=== PATIENT | female | born 1985 | race Caucasian/White ===

== ENCOUNTER 2019-01-04 21:42 | Emergency (ER) | payer OTHER ==
[~2019-01-04] VITALS: Ht 170.2 cm; Wt 86.2 kg
--- NOTE | 2019-01-04 22:00 | NUR ---
PATIENT BIB [facility] FROM [facility] FOR C/O PELVIC PAIN 30 MIN EDUCATION LIAISON, PATIENT STARTED AFTER HAVING A BOWEL MOVEMENT.
--- NOTE | 2019-01-04 22:41 | NUR ---
DR. TARANGO AT BEDSIDE FOR MSE.
[2019-01-04] MEDS ORDERED: TRAMADOL HCL 50 MG TABLET PO ONE (23:00)
[2019-01-04] MEDS ORDERED: TRAMADOL HCL 50 MG TABLET ONE (23:04)
--- NOTE | 2019-01-04 23:24 | NUR ---
PATIENT RETURNED FROM CT SCAN.
[2019-01-05] MEDS ORDERED: diphenhydrAMINE 50 MG/1 ML VIAL ONE (00:29)
[2019-01-05] MEDS ORDERED: MORPHINE SULFATE 4 MG/1 ML DISP.SYRIN ONE (00:29)
[2019-01-05] MEDS ORDERED: MORPHINE SULFATE 4 MG/1 ML DISP.SYRIN IM ONE (00:30)
[2019-01-05] MEDS ORDERED: MORPHINE SULFATE 2 MG/1 ML DISP.SYRIN ONE (00:30)
[2019-01-05] MEDS ORDERED: diphenhydrAMINE 50 MG/1 ML VIAL IM ONE (00:30)
--- NOTE | 2019-01-05 00:35 | NUR ---
Patient discharged to home in stable conditon. Written and verbal after care instructions given. Patient verbalizes understanding of instructions. PATIENT LEFT VIA WHEELCHAIR, PICKED UP BY PRIVATE CAR.
[2019-01-05 00:36] VITALS: BP 117/78
== END 2019-01-05 00:37 | disposition home or self-care (01) ==
LOC: ER 21:43
DX: R10.2 Pelvic and perineal pain (principal); M54.42 Lumbago with sciatica, left side; F32.9 Major depressive disorder, single episode, unspecified; Z90.49 Acquired absence of other specified parts of digestive tract; Z90.710 Acquired absence of both cervix and uterus; Z88.2 Allergy status to sulfonamides; Z88.8 Allergy status to other drugs, medicaments and biological substances; Z88.6 Allergy status to analgesic agent; Z91.040 Latex allergy status
CPT/HCPCS: 74176; 96372 ×2; 99284; J1200; J2270 ×2; A4663